=== PATIENT | male | born 1940 | race Caucasian/White ===

== ENCOUNTER 2016-09-25 18:10 | Observation (INO) | payer MEDICARE ==
[~2016-09-25] VITALS: Ht 182.9 cm; Wt 81.6 kg
[2016-09-25] MEDS ORDERED: FENTANYL PF 100 MCG/2ML IV ONE (18:30)
[2016-09-25] MEDS ORDERED: OMEP10CA4 PO (18:35)
[2016-09-25] MEDS ORDERED: TAMS-11 PO (18:35)
[2016-09-25] MEDS ORDERED: LOSA25TA5 PO (18:35)
[2016-09-25] MEDS ORDERED: RIVA10TA PO (18:35)
[2016-09-25] MEDS ORDERED: DILT60CA PO (18:35)
[2016-09-25] MEDS ORDERED: SIMV5TAB5 PO (18:35)
[2016-09-25 18:44] LABS: ASPARTATE AMINO TRANSFERASE 16 U/L (15-37); BLOOD UREA NITROGEN 16 mg/dL (7-18)
[2016-09-25] MEDS ORDERED: BUPIVACAINE/PF-EPI 0.25% 1:200K ONE (19:20)
[2016-09-25] MEDS ORDERED: FENTANYL PF 250 MCG/5ML ONE (19:28)
[2016-09-25] MEDS ORDERED: hydrALAzine 20 MG/ML, 1ML IV PRN (19:30)
[2016-09-25] MEDS ORDERED: OXYcodone 5 MG/5 ML ORAL.SOL UDC PO PRN (19:30)
[2016-09-25] MEDS ORDERED: METOCLOPRAMIDE 5 MG/ML, 2ML IV PRN (19:30)
[2016-09-25] MEDS ORDERED: EPHEDRINE 50 MG/ML, 1ML IVPush PRN (19:30)
[2016-09-25] MEDS ORDERED: PROMETHAZINE 25 MG/ML, 1ML IV PRN (19:30)
[2016-09-25] MEDS ORDERED: HYDROmorphone 1 MG/ML, 1ML IV PRN (19:30)
[2016-09-25] MEDS ORDERED: ONDANSETRON 2MG/ML, 2ML IVPush PRN (19:30)
[2016-09-25] MEDS ORDERED: ACETAMINOPHEN 325 MG TABLET PO PRN (19:30)
[2016-09-25] MEDS ORDERED: FENTANYL PF 100 MCG/2ML IV PRN (19:30)
[2016-09-25] MEDS ORDERED: LABETALOL 5MG/ML, 20ML IV PRN (19:30)
[2016-09-25] MEDS ORDERED: PROPOFOL 10 MG/ML, 20ML ONE (19:34)
[2016-09-25] MEDS ORDERED: SUCCINYLCHOLINE 20 MG/ML, 10ML ONE (19:34)
[2016-09-25] MEDS ORDERED: ONDANSETRON 2MG/ML, 2ML ONE (19:34)
[2016-09-25] MEDS ORDERED: ESMOLOL 100 MG/10 ML ONE (19:34)
[2016-09-25] MEDS ORDERED: METOPROLOL 1 MG/ML, 5ML ONE ×2 (19:34→20:18)
[2016-09-25] MEDS: METOPROLOL 1 MG/ML, 5ML IV PRN ×2 (20:20→20:28)
[2016-09-25] MEDS ORDERED: BUPIVACAINE/PF-EPI 0.25% 1:200K INFIL ONE (20:28)
[2016-09-25] MEDS ORDERED: MAGNESIUM HYDROXIDE 8%, 30ML UDC PO ONE (20:30)
[2016-09-25] MEDS ORDERED: OXYcodone/APAP 5/325MG TABLET ONE (21:16)
[2016-09-25] MEDS: OXYcodone/APAP 5/325MG TABLET PO PRN (21:30)
[2016-09-25] MEDS ORDERED: LABETALOL 5MG/ML, 20ML IVPush PRN (22:00)
[2016-09-25 22:25] VITALS: BP 155/75
[2016-09-25 23:15] VITALS: BP 167/86
[2016-09-25] MEDS ORDERED: MORPHINE SULFATE 4 MG/ML, 1ML IV PRN (23:30)
[2016-09-25] MEDS ORDERED: ONDANSETRON 2MG/ML, 2ML IV PRN (23:30)
[2016-09-26] MEDS: OXYcodone/APAP 5/325MG TABLET PO PRN ×4 (01:17→11:19)
[2016-09-26 02:41] VITALS: BP 119/74
[2016-09-26 03:15] VITALS: BP 120/72
[2016-09-26 06:54] VITALS: BP 129/74
== END 2016-09-26 12:00 | disposition home or self-care (01) ==
LOC: OR 18:53 → EDIP 19:08 → INTOOBSV 19:08 → 4NOR 20:55 → DCLOUNGE 09-26 11:45
PROVIDERS: ADMIT Colon & Rectal Surgery; ATTEND Colon & Rectal Surgery
DX: K91.840 Postprocedural hemorrhage of a digestive system organ or structure following a digestive system procedure (principal); K21.9 Gastro-esophageal reflux disease without esophagitis; I48.91 Unspecified atrial fibrillation; I10 Essential (primary) hypertension; E78.00 Pure hypercholesterolemia, unspecified; Z96.659 Presence of unspecified artificial knee joint; Z79.01 Long term (current) use of anticoagulants; Y83.9 Surgical procedure, unspecified as the cause of abnormal reaction of the patient, or of later complication, without mention of misadventure at the time of the procedure; Y92.89 Other specified places as the place of occurrence of the external cause
CPT/HCPCS: 36415; 46945; 80053; 85025; 85610; 85730; 86850; 86900; 93005; 96374; 96375; 99291; G0378; J0330; J2405; J2704; J3010

== ENCOUNTER 2021-03-02 08:50 | Inpatient (IN) | payer MEDICARE ==
[~2021-03-02] VITALS: Ht 182.9 cm; Wt 76.4 kg
[~2021-03-02 08:50] MED LIST: DILT60CA PO; LOSA25TA25 PO; OMEP10CA5 PO; RIVA10TA2 PO; SIMV5TAB14 PO; TAMS-11 PO
[2021-03-02] MEDS ORDERED: ONDANSETRON 2MG/ML, 2ML IVPush PRN (09:30)
[2021-03-02] MEDS ORDERED: SODIUM CHLORIDE 0.9%, 500ML IVBOLUS ONE (09:30)
[2021-03-02] MEDS ORDERED: ATOR40TA78 PO (09:47)
[2021-03-02] MEDS ORDERED: RIVA20TA PO (09:49)
[2021-03-02] MEDS ORDERED: OMEP-110 PO (09:49)
[2021-03-02] MEDS ORDERED: LOSA100T14 PO (09:49)
[2021-03-02] MEDS ORDERED: DILT30TA33 PO (09:49)
[2021-03-02 09:52] VITALS: BP 155/91
[2021-03-02 10:11] LABS: BASOPHILS % (AUTO) 0 % (0-1); EOSINOPHILS % (AUTO) 2 % (1-7); LYMPHOCYTES % (AUTO) 13 % (22-44); MEAN CORPUSCULAR HEMOGLOBIN 30.5 pg (27.5-34.5); MEAN CORPUSCULAR HGB CONC 33.5 g/dL (33.2-36.2); MONOCYTES % (AUTO) 7 % (2-9); NEUTROPHILS % (AUTO) 77 % (42-75); PLATELET COUNT 150 x10^3/uL (130-400); RED BLOOD COUNT 5.24 x10^6/uL (4.38-5.82); RED CELL DISTRIBUTION WIDTH 14.3 % (9.4-14.8)
[2021-03-02 10:20] LABS: INTERNATIONAL NORMALIZED RATIO 1.09 (0.93-1.1); PROTHROMBIN TIME 11.6 Seconds (9.6-11.5)
[2021-03-02 10:22] LABS: ANION GAP 7 mmol/L (5-15); CALCIUM 9.5 mg/dL (8.5-10.1); CHLORIDE 109 mmol/L (98-107)
[2021-03-02] MEDS ORDERED: FENTANYL PF 250 MCG/5ML ONE (12:23)
[2021-03-02] MEDS ORDERED: ROCURONIUM 10 MG/ML,10ML ONE (12:25)
[2021-03-02] MEDS ORDERED: SUCCINYLCHOLINE 20 MG/ML, 10ML ONE (12:25)
[2021-03-02] MEDS ORDERED: ONDANSETRON 2MG/ML, 2ML ONE (13:05)
[2021-03-02] MEDS ORDERED: DEXAMETHASONE 4 MG/ML, 1ML ONE (13:05)
[2021-03-02] MEDS ORDERED: HEPARIN 1,000 UNITS/ML, 10ML ONE ×2 (13:05)
[2021-03-02] MEDS ORDERED: PROPOFOL 10 MG/ML, 20ML ONE (13:05)
[2021-03-02] MEDS ORDERED: CEFAZOLIN 1,000 MG ONE (13:05)
[2021-03-02] MEDS ORDERED: MAALOX/HYOSCYAMINE/LIDOCAINE 45 ML BTL PO PRN (13:30)
[2021-03-02] MEDS ORDERED: SODIUM CHLORIDE 0.9% 1,000 ML IV SCH (13:30)
[2021-03-02] MEDS ORDERED: ONDANSETRON 2MG/ML, 2ML IV PRN (13:30)
[2021-03-02] MEDS ORDERED: ACETAMINOPHEN 325 MG TABLET PO PRN (13:30)
[2021-03-02] MEDS ORDERED: RIVAROXABAN 20 MG TABLET ONE (14:21)
[2021-03-02] MEDS ORDERED: OXYcodone/APAP 5/325MG TABLET ONE (15:05)
[2021-03-02] MEDS: OXYcodone/APAP 5/325MG TABLET PO PRN ×2 (15:10→17:04)
[2021-03-02 20:18] VITALS: BP 138/85
[2021-03-02] MEDS: DILTIAZEM 30 MG TABLET PO SCH (20:44)
[2021-03-02] MEDS ORDERED: TAMSULOSIN 0.4 MG CAP.ER.24H PO SCH (21:00)
[2021-03-02] MEDS ORDERED: ATORVASTATIN 40 MG TABLET PO SCH (21:00)
[2021-03-02] MEDS ORDERED: RIVAROXABAN 20 MG TABLET PO SCH (21:00)
[2021-03-03 01:22] VITALS: BP 142/82
[2021-03-03] MEDS ORDERED: ASPIRIN 81 MG TABLET CHEW PO SCH (06:00)
[2021-03-03 06:06] LABS: BASOPHILS % (AUTO) 0 % (0-1); EOSINOPHILS % (AUTO) 0 % (1-7); LYMPHOCYTES % (AUTO) 7 % (22-44); MEAN CORPUSCULAR HEMOGLOBIN 29.9 pg (27.5-34.5); MEAN CORPUSCULAR HGB CONC 32.4 g/dL (33.2-36.2); MEAN PLATELET VOLUME 8.9 fL (7.4-10.4); MONOCYTES % (AUTO) 8 % (2-9); NEUTROPHILS % (AUTO) 85 % (42-75); PLATELET COUNT 154 x10^3/uL (130-400); RED BLOOD COUNT 4.86 x10^6/uL (4.38-5.82); RED CELL DISTRIBUTION WIDTH 14.1 % (9.4-14.8)
[2021-03-03 06:13] LABS: ANION GAP 4 mmol/L (5-15); CALCIUM 8.5 mg/dL (8.5-10.1); CHLORIDE 107 mmol/L (98-107); CREATININE 1.34 mg/dL (0.7-1.3)
[2021-03-03] MEDS ORDERED: VANCOMYCIN PMX 1GM/200ML 200 ML IV ONE (08:00)
[2021-03-03 08:40] VITALS: BP 136/74
[2021-03-03] MEDS ORDERED: OMEPRAZOLE 20 MG CAPSULE.DR PO SCH (09:00)
[2021-03-03] MEDS ORDERED: RIVAROXABAN 20 MG TABLET PO SCH (09:00)
[2021-03-03] MEDS ORDERED: LOSARTAN 100 MG TAB PO SCH (09:00)
[2021-03-03] MEDS: DILTIAZEM 30 MG TABLET PO SCH (09:23)
[2021-03-03] MEDS ORDERED: ASPI-963 PO (10:31)
== END 2021-03-03 14:43 | disposition home or self-care (01) | DRG 273 ==
LOC: ORIP 08:50 → 5SO 16:00
PROVIDERS: ADMIT Internal Medicine Cardiovascular Disease; ATTEND Internal Medicine Cardiovascular Disease
PROC: B24BZZ4 Ultrasonography of Heart with Aorta, Transesophageal (ICD-10-PCS; 2021-03-02)
PROC: 02L73DK Occlusion of Left Atrial Appendage with Intraluminal Device, Percutaneous Approach (ICD-10-PCS; principal; 2021-03-02 12:15)
DX: I48.19 Other persistent atrial fibrillation (principal); Z00.6 Encounter for examination for normal comparison and control in clinical research program; N17.0 Acute kidney failure with tubular necrosis; D68.69 Other thrombophilia; K21.9 Gastro-esophageal reflux disease without esophagitis; D72.829 Elevated white blood cell count, unspecified; E78.5 Hyperlipidemia, unspecified; N40.0 Benign prostatic hyperplasia without lower urinary tract symptoms; I10 Essential (primary) hypertension; Z20.822 Contact with and (suspected) exposure to COVID-19; Z79.01 Long term (current) use of anticoagulants; Z79.82 Long term (current) use of aspirin
CPT/HCPCS: 33340; 36415; 71045; 80048; 83880; 85025; 85347; 85610; 86850; 86900; 87635; 93005; 93308; 93355; C1766; C1769; C1893; C1894; G0378; J0690; J1100; J1644; J2405; J2704; J3010; J3370; J0330; J7040; Q9967